=== PATIENT | male | born 1965 | race African-American/Black ===

== ENCOUNTER 2016-12-14 16:55 | Emergency (ER) | payer OTHER | END 2016-12-14 17:55 | disposition home or self-care (01) | LOC: FER 16:55 | DX: J20.9 Acute bronchitis, unspecified (principal); I10 Essential (primary) hypertension; E78.5 Hyperlipidemia, unspecified; Z79.899 Other long term (current) drug therapy | CPT/HCPCS: 87804; 87899; 99283 ==